=== PATIENT | female | born 1970 | race Caucasian/White ===

== ENCOUNTER 2025-01-15 18:16 | Emergency (ER) | payer OTHER, SELFPAY ==
--- NOTE | ~2025-01-15 | XR_ITS ---
EXAMINATION: XR chest 1V portable COMPARISON: No comparisons available. HISTORY: cough, URI sx FINDINGS: The lungs are clear, no effusion. No pneumothorax. Heart is normal size. Mediastinal and hilar contours are within normal limits. Bony thorax no acute abnormality. Miscellaneous: None Impression: No acute cardiopulmonary abnormality. Reviewed, dictated and finalized at location P. Impression: No acute cardiopulmonary abnormality.
--- OUTSIDE RECORDS SUMMARY | 2025-01-15 10:30 | XMS_ITS | Encounter Summary ---
Author Organization [facility] Healthcare Address [address] [place] [address] Care Team Providers Care Decker Operator Name Role Phone Charli Jadon Mccann MD Primary Care Provider + [phone] Viridiana Pink MD Unavailable [phone] Marty Feng MD Unavailable [phone] Reason for Visit * Reason Comments Shortness of Breath Started sta rted coughing up green mucus and noticed SOB when walking up a flight of steps. Has taken Covid test and was negative. Has hx of asthma and using inhaler. Does not do neb tx. Has had pneumonia and bronchitis. Taking mucinex and delsym with no relief. Encounter Details Date Type Department Care Team (Late st Contact Info) Description 01/15/2025 10:30 AM CDT Office Visit [facility] Care at [address] [address] Kristina Giles PA [address] [place] [address] [address] [place] [address] Acute cough (Primary Dx); Shortness of breath Social History Tobacco Use Types Packs/Day Years Used Date Smoking Tobacco: Never Smokeless Tobacco: Never Alcohol Use Standard Drinks/Week Comments Yes 0 (1 standard drink = 0.6 oz pur e alcohol) AUDIT-C Answer Date Recorded Q1: How often do you have a drink containing alc ohol? 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 Gender Identity Female 09/15/2023 6:21 PM CDT Sexual Orientation Not on file documented as of this encounter Last Filed Vital Signs Vital Sign Reading Time Taken Comments Blood Pressure 118/79 01/15/2025 10:24 AM CDT Pulse 75 01/15/2025 10:24 AM CDT Temperature 36.8 C (98.2 F) 01/15/2025 10:24 AM CDT Respiratory Rate 20 01/15/2025 10:24 AM CDT Oxygen Saturation 99% 01/15/2025 10:24 AM CDT Inhaled Oxygen Concentration - - Weight 108 kg (238 lb) 01/15/2025 10:24 AM CDT Height 170.2 cm (5' 7) 01/15/2025 10:24 AM CDT Body Mass Index 37.28 01/15/2025 10:24 AM CDT documented in this encounter Patient Instructions * Patient Instructions* Kristina Giles PA - 01/15/2025 10:30 AM CDT -start prednisone taper today -continue albuterol inhaler every 4-6 hours as needed -return Friday at imaging center next door for chest xray -ER for any new or worsening symptoms * Attachments The following attachments cannot be sent through Care Everywhere. * Acute Cough (AfterCare(R) Instructions(ER/ED)) (Czech) documented in this encounter Ordered Prescriptions Prescription Sig Dispense Quantity Refills Last Filled Start Date End Date predniSONE (DELTASONE) 10 mg tablet Take 5 tabs (50mg) daily for 2 days, then take 4 tabs (40mg) daily for 2 days. Continue to decrease by 1 tab (10mg) every 2 days until gone. 30 tablet 01/15/2025 documented in this encounter Progress Notes * Kristina Giles PA - 01/15/2025 10:30 AM CDT Images from the original note were not included. Subjective/Objective Patient ID: Hortencia Deras is a 55 y.o. female. Chief Complaint Shortness of Breath (Started started coughing up green mucus and noticed SOB when walking up a flight of steps. Has taken Covid test and was negative. Has hx of asthma and using inhaler. Does not do neb tx. Has had pneumonia and bronchitis. Taking mucinex and delsym with no relief. ) Pt presents w/ URI x 4 days. Started with cough which worsened 2 days ago. Cough is now productive and having wheezing as well. Starting to feel winded when walking up stairs. Tried mucinex, delsym. Called pcp who said go to if symptoms got worse. Home covid test negative. Using albuterol inhaler w/ short term relief. Had asthma as a child. No fever. Had sore throat initially which has improved. Chest sore when she coughs. 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 Review of Systems All systems reviewed and are negative or non contributory for this patient's presentation today other than as stated in the HPI . Physical Exam Constitutional: General: She is not in acute distress. Appearance: She is not ill-appearing or toxic-appearing. HENT: Head: Normocephalic and atraumatic. Right Ear: External ear normal. Left Ear: External ear normal. Nose: Nose normal. Mouth/Throat: Mouth: Mucous membranes are moist. Pharynx: Oropharynx is clear. Eyes: Conjunctiva/sclera: Conjunctivae normal. Pupils: Pupils are equal, round, and reactive to light. Cardiovascular: Rate and Rhythm: Normal rate and regular rhythm. Heart sounds: Normal heart sounds. Pulmonary: Effort: Pulmonary effort is normal. No respiratory distress. Breath sounds: Normal breath sounds. No wheezing or rhonchi. Musculoskeletal: General: Normal range of motion. Cervical back: Normal range of motion. Skin: General: Skin is warm and dry. Neurological: General: No focal deficit present. Mental Status: She is alert and oriented to person, place, and time. Psychiatric: Mood and Affect: Mood normal. Behavior: Behavior normal. Vitals: 01/15/25 1024 BP: 118/79 Pulse: 75 Resp: 20 Temp: 36.8 ??C (98.2 ??F) TempSrc: Oral SpO2: 99% Weight: 108 kg (238 lb) Height: 170.2 cm (5' 7) Assessment/Plan -URI x 4 days w/ worsening cough and sob -lungs cta, oxygen 99% on RA, NARD -discussed ER presentation due to progressive sob, pt prefers to try prednisone taper first and return Friday for CXR to r/o PNA -start prednisone taper, continue albuterol every 4-6 hours prn -we did discuss ER presentation if symptoms worsen over the weekend or if sob is no longer improving with the albuterol -all questions and concerns addressed at length Diagnoses and all orders for this visit: Acute cough (Primary) - XR Chest Pa Lateral 2 Views; Future Shortness of breath Other orders - predniSONE (DELTASONE) 10 mg tablet; Take 5 tabs (50mg) daily for 2 days, then take 4 tabs (40mg)daily for 2 days. Continue to decrease by 1 tab (10mg) every 2 days until gone. No results found for this or any previous visit (from the past 4 hours). Disposition Treatment plan including expectations, follow up, and return precautions discussed with patient/parent, verbalizes understanding. Medication dosage, use, and potential adverse reactions discussed with patient/parent. Advised to follow up with PCP if symptoms do not resolve as expected or sooner if condition worsens. Signs/symptoms warranting ER evaluation reviewed. Patient and/or guardian was given an opportunity to ask questions, questions answered. CROW Johnston 01/15/25 11:02 AM documented in this encounter Plan of Treatment Scheduled Orders Name Type Priority Associated Diagnoses Orde r Schedule XR Chest Pa Lateral 2 Views Imaging Schedule JUD, Read JUD (Appt Today, Awaiting Results) Acute cough Expected: 01/15/2025, Expires: 01/15/2026 documented as of this encounter Visit Diagnoses Diagnosis Acute cough- Primary Shortness of breath documented in this encounter Care Teams Decker Operator Relationship Specialty Start Date End Date Charli, Jadon Ramy, MD [address] [place] [address] PCP - General 07/05/16 Viridiana Pink MD [address] [place] [address] Referring Physician Gynecology 09/02/18 Marty Feng MD [address] [place] [address] Referring Physician Cardiology 09/02/18 documented as of this encounter
--- OUTSIDE RECORDS SUMMARY | 2025-01-15 10:30 | XMS_ITS | Encounter Summary ---
Author Organization [facility] Healthcare Address [address] [place] [address] Care Team Providers Care Ciaio Counter Molder Name Role Phone Charli Jadon Mccann MD Primary Care Provider + [phone] Viridiana Pink MD Unavailable [phone] Marty Feng MD Unavailable [phone] Reason for Visit * Reason Comments Shortness [...] Description 01/15/2025 10:30 AM CDT Office Visit 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 * Acute Cough (AfterCare(R) Instructions(ER/ED)) (Kiswahili) documented in this encounter Ordered Prescriptions Prescription [...] improved. Chest sore when she coughs. Offered physician liaison but patient declined. Review of Systems All [...] an opportunity to ask questions, questions answered. CRWO Johnston 01/15/25 11:02 AM documented in this encounter Plan of Treatment Scheduled Orders Name Type Priority Associated Diagnoses Orde r Schedule XR Chest Pa Lateral 2 Views Imaging Schedule JUD, Read JUD (Appt Today, Awaiting Results) Acute cough Expected: 01/15/2025, Expires: 01/15/2026 documented as of this encounter Visit Diagnoses Diagnosis Acute cough- Primary Shortness of breath documented in this encounter Care Teams Ciaio Counter Molder Relationship Specialty Start Date End Date Charli, Jadon Ramy, MD [address] [place] [address] PCP - General 07/05/16 Viridiana Pink MD [address] [place] [address] Referring Physician Gynecology 09/02/18 Marty Feng MD [address] [place] [address] Referring Physician Cardiology 09/02/18 documented as of this encounter
--- OUTSIDE RECORDS SUMMARY | 2025-01-15 18:18 | XMS_ITS | Encounter Summary ---
Author Organization [facility] Healthcare Address [address] [place] [address] Care Team Providers Care Circus Rider Name Role Phone Charli, Jadon Mccann MD Primary Care Provider + [phone] Viridiana Pink MD Unavailable [phone] Marty Feng MD Unavailable [phone] Encounter Details Date Type Department Care Team (Late st Contact Info) Description 03/14/2017 Orders Only [facility] Imaging and Radiology [address] [place] [address] Angela Bob RN Social History Tobacco Use Types Packs/Day Years Used Date Smoking Tobacco: Never Alcohol Use Standard Drinks/Week Comments Yes 0 (1 standard drink = 0.6 oz pur e alcohol) Comments Unknown Sex and Gender Information Value Date Recorded Sex Assigned at Not on file Legal Sex Female 9:46 AM RENTAL REPRESENTATIVE Gender Identity Female 09/15/2023 6:21 PM CDT Sexual Orientation Not on file documented as of this encounter Plan of Treatment Not on file documented as of this encounter Visit Diagnoses Not on filedocumented in this encounter Orders IV Count Last Ordered Date First Orde red Date SALINE LOCK IV 1 03/17/2017 documented in this encounter Additional Health Concerns Infection Onset Date Last Indicated Resolved Time COVID: Suspected 03/04/2022 03/04/2022 03/04/2022 2:10 PM RENTAL REPRESENTATIVE COVID: Suspected 01/22/2024 01/22/2024 01/22/2024 3:33 PM CDT COVID: Suspected 06/12/2024 06/12/2024 06/13/2024 12:29 AM RENTAL REPRESENTATIVE documented as of this encounter Care Teams Circus Rider Relationship Specialty Start Date End Date Jadon Augustin MD [address] [place] [address] PCP - General 07/05/16 Viridiana Pink MD [address] [place], [place] [id number] Referring Physician Gynecology 09/02/18 Marty Feng MD [address] [place], [place] [address] Referring Physician Cardiology 09/02/18 documented as of this encounter
--- OUTSIDE RECORDS SUMMARY | 2025-01-15 18:18 | XMS_ITS | Encounter Summary ---
Author Organization [facility] Healthcare Address [address] [place] [address] Care Team Providers Care Qa Architect Name Role Phone Charli, Jadon Mccann MD Primary Care Provider + [phone] Viridiana Pink MD Unavailable [phone] Marty Feng MD Unavailable [phone] Encounter Details Date Type Department Care Team (Late st Contact Info) Description 03/14/2017 Orders Only [facility] Imaging and Radiology [address] [place] [address] Jesús Lang, [address] [place] [address] Social History Tobacco Use Types Packs/Day Years Used Date Smoking Tobacco: Never Alcohol Use Standard Drinks/Week Comments Yes 0 (1 standard drink = 0.6 oz pur e alcohol) Comments Unknown Sex and Gender Information Value Date Recorded Sex Assigned at Not on file 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 Gender Identity Female 09/15/2023 6:21 PM CDT Sexual Orientation Not on file documented as of this encounter Plan of Treatment Not on file documented as of this encounter Visit Diagnoses Not on filedocumented in this encounter Additional Health Concerns Infection Onset Date Last Indicated Resolved Time COVID: Suspected 03/04/2022 03/04/2022 03/04/2022 2:10 PM PATTERN GRADER SUPERVISOR COVID: Suspected 01/22/2024 01/22/2024 01/22/2024 3:33 PM CDT COVID: Suspected 06/12/2024 06/12/2024 06/13/2024 12:29 AM PATTERN GRADER SUPERVISOR documented as of this encounter Care Teams Qa Architect Relationship Specialty Start Date End Date Jadon Augustin MD [address] [place] [address] PCP - General 07/05/16 Viridiana Pink MD [address] [place] [address] Referring Physician Gynecology 09/02/18 Marty Feng MD [address] [place] [address] Referring Physician Cardiology 09/02/18 documented as of this encounter
[2025-01-15 18:19] VITALS: BP 149/87; PULSE 85; RESP 19; TEMP 37.1; O2SAT 99
--- OUTSIDE RECORDS SUMMARY | 2025-01-15 18:19 | XMS_ITS | Encounter Summary ---
Author Organization [facility] Address [address] [place] [address] Phone Care Team Providers Care Specialty Foods Cook Name Role Phone Jadon Augustin MD Primary Care Provider +- [phone] Viridiana Pink MD Unavailable [phone] Marty Feng MD Unavailable [phone] Encounter Details Date Type Department Care Team (Late st Contact Info) Description 11/29/2016 Orders Only [facility] [address] [place] [address] Jadon Augustin MD [address] [address] Routine lab draw (Primary Dx) Social History Tobacco Use Types Packs/Day Years Used Date Smoking Tobacco: Never Alcohol Use Standard Drinks/Week Comments Yes 0 (1 standard drink = 0.6 oz pur e alcohol) Comments Unknown Sex and Gender Information Value Date Recorded Sex Assigned at Not on file Legal Sex Female 9:46 AM POCKETS AND PIECES NECKTIE OPERATOR Gender Identity Female 09/15/2023 6:21 PM CDT Sexual Orientation Not on file documented as of this encounter Plan of Treatment Not on file documented as of this encounter Procedures Procedure Name Priority Date/Time Associated Diagnosis Comments TSH Routine 04/12/2017 8:01 AM POCKETS AND PIECES NECKTIE OPERATOR Routine lab draw CBC WITH AUTO DIFFERENTIAL Routine 04/12/2017 7:58 AM POCKETS AND PIECES NECKTIE OPERATOR Routine lab draw LIPID PANEL Routine 04/12/2017 7:58 AM POCKETS AND PIECES NECKTIE OPERATOR Routine lab draw COMPREHENSIVE METABOLIC PANEL Routine 04/12/2017 7:58 AM POCKETS AND PIECES NECKTIE OPERATOR Routine lab draw documented in this encounter Results * TSH (04/12/2017 8:01 AM POCKETS AND PIECES NECKTIE OPERATOR) [facility] TSH 3.85 mIU/L [facility] Comment: Reference Range > or = 20 Years 0.40-4.50 Ranges First trimester 0.26-2.66 Second trimester 0.55-2.73 Third trimester 0.43-2.91 Blood specimen (specimen) 04/12/2017 8:01 AM POCKETS AND PIECES NECKTIE OPERATOR 04/12/2017 8:01 AM POCKETS AND PIECES NECKTIE OPERATOR Narrative [facility] - 04/13/2017 6:31 AM POCKETS AND PIECES NECKTIE OPERATOR FASTING:YES FASTING: YES Resulting Agency Comment Performing Organization Information: Site ID: [place] Name: [facility] [place] Address: [address] [place] [id number] Director: Miles Lilly D.O., MPH Jadon Augustin MD LAB BLOOD ORDERABLES Final Result [facility] [place], [place] * Lipid panel (04/12/2017 7:58 AM POCKETS AND PIECES NECKTIE OPERATOR) [facility] Cholesterol 144 <200 mg/dL [facility] [place] HDL 58 >50 mg/dL [facility] [place] Triglycerides 67 <150 mg/dL [facility] [place] LDL 72 mg/dL (calc) [facility] - [place] Comment: Reference range: <100 Desirable range <100 mg/dL for patients with CHD or diabetes and <70 mg/dL for diabetic patients with known heart disease. LDL-C is now calculated using the Osmel calculation, which is a validated novel method providing better accuracy than the Friedewald equation in the estimation of LDL-C. Gian COCHRAN et al. KIRA. 2013;310(19): 5657-0785 (http://education.Wozityou/faq/JNG922) Chol/HDL ratio 2.5 <5.0 (calc) [facility] [place] Non-HDL, (LDL+VLDL) 86 <130 mg/dL (calc) [facility] [place] Comment: For patients with diabetes plus 1 major ASCVD risk factor, treating to a non-HDL-C goal of <100 mg/dL (LDL-C of <70 mg/dL) is considered a therapeutic option. Blood specimen (specimen) 04/12/2017 7:58 AM POCKETS AND PIECES NECKTIE OPERATOR 04/12/2017 7:59 AM POCKETS AND PIECES NECKTIE OPERATOR Narrative [facility] - 04/13/2017 9:22 AM POCKETS AND PIECES NECKTIE OPERATOR FASTING:YES FASTING: YES Resulting Agency Comment Performing Organization Information: Site ID: [place] Name: [id number] [place] Address: [address] [facility] [place] [address] Director: Miles Lilly D.O., MPH Jadon Augustin MD LAB BLOOD ORDERABLES Final Result [facility] [place] * (ABNORMAL) Comprehensive metabolic panel (04/12/2017 7:58 AM POCKETS AND PIECES NECKTIE OPERATOR) Glucose 97 65 - 99 mg/dL [facility] [place] Comment: Fasting reference interval BUN 14 7 - 25 mg/dL [facility] [place] Creatinine 0.90 0.50 - 1.10 mg/dL [facility] [place] eGFR NON-AFR. [place] 76 > OR = 60 mL/min/1. 73m2 [facility] [place] EGFR 88 > OR = 60 mL/min/1. 73m2 [facility] [place] BUN/creat ratio NOT APPLICABLE 6 - 22 (calc) [facility] [place] Sodium 143 135 - 146 mmol/L [facility] [place] Potassium, pl 4.8 3.5 - 5.3 mmol/L [facility] [place] Chloride 111(H) 98 - 110 mmol/L [facility] [place] CO2 22 20 - 31 mmol/L [facility] [place] Calcium 9.1 8.6 - 10.2 mg/dL [facility] [place] Protein, sr 7.0 6.1 - 8.1 g/dL [facility] [place] Albumin 4.4 3.6 - 5.1 g/dL [facility] [place] GLOBULIN 2.6 1.9 - 3.7 g/dL (calc) [facility] [place] Alb/glob ratio 1.7 1.0 - 2.5 (calc) [facility] [place] Bilirubin, total 0.8 0.2 - 1.2 mg/dL [facility] [place] Alk phos 49 33 - 115 U/L [facility] [place] AST 18 10 - 35 U/L [facility] [place] ALT (SGPT) 16 6 - 29 U/L [facility] [place] Blood specimen (specimen) 04/12/2017 7:58 AM POCKETS AND PIECES NECKTIE OPERATOR 04/12/2017 7:59 AM POCKETS AND PIECES NECKTIE OPERATOR Narrative [facility] - 04/13/2017 9:22 AM POCKETS AND PIECES NECKTIE OPERATOR FASTING:YES FASTING: YES Resulting Agency Comment Performing Organization Information: Site ID: [place] Name: [facility] Address: [address] [place] [address] [place] [address] Director: Miles Lilly D.O., MPH us Jadon Augustin MD LAB BLOOD ORDERABLES Final Result [facility] [place] * CBC with auto differential (04/12/2017 7:58 AM POCKETS AND PIECES NECKTIE OPERATOR) WBC 5.7 3.8 - 10.8 Thousand/ uL [facility] [place] RBC, POC 4.90 3.80 - 5.10 Million/u L [facility] [place] Hgb 14.1 11.7 - 15.5 g/dL [facility] [place] Hct 41.7 35.0 - 45.0 % [facility] [place] MCV 85.1 80.0 - 100.0 fL [facility] [place] MCH 28.8 27.0 - 33.0 pg [facility] [place] MCHC 33.8 32.0 - 36.0 g/dL [facility] [place] Rdw 12.7 11.0 - 15.0 % [facility] [place] Platelets 210 140 - 400 Thousand/ uL [facility] [place] MPV 11.0 7.5 - 12.5 fL [facility] [place] Neutrophils, abs 2,867 1,500 - 7,800 cells/uL [facility] [place] Neutrophil bands, abs CANCELED 0 - 750 cells/uL [facility] [place] Comment:Result canceled by t he ancillary Metamyelocytes, abs CANCELED 0 cells/uL [facility] [place] Comment:Result canceled by t he ancillary Absolute Myelocytes CANCELED 0 cells/uL [facility] [place] Comment:Result canceled by t he ancillary Promyelocytes, abs CANCELED 0 cells/uL [facility] [place] Comment:Result canceled by t he ancillary Lymphocytes, abs 2,012 850 - 3,900 cells/uL [facility] [place] Monocyte abs 399 200 - 950 cells/uL [facility] [place] Eosinophils, abs 319 15 - 500 cells/uL [facility] [place] Basophils, abs 103 0 - 200 cells/uL [facility] [place] Blast, cell CANCELED 0 cells/uL [facility] [place] Comment:Result canceled by t he ancillary NRBC abs CANCELED 0 cells/uL [facility] [place] Comment:Result canceled by t he ancillary Neutrophils 50.3 % [facility] [place] Neutrophilic bands CANCELED % [facility] [place] Comment:Result canceled by t he ancillary Metamyelocyte pct CANCELED % [facility] [place] Comment:Result canceled by t he ancillary Myelocyte pct CANCELED % [facility] [place] Comment:Result canceled by t he ancillary Promyelocyte pct CANCELED % [facility] [place] Comment:Result canceled by t he ancillary Lymphocyte pct 35.3 % [facility] [place] Reactive lymph CANCELED 0 - 10 % [facility] [place] Comment:Result canceled by t he ancillary Monocytes 7.0 % [facility] [place] Eosinophils 5.6 % [facility] [place] Basophils 1.8 % [facility] [place] Blast pct CANCELED % [facility] [place] Comment:Result canceled by t he ancillary NRBC CANCELED 0 /100 WBC [facility] [place] Comment:Result canceled by t he ancillary Comment CANCELED [facility] [place] Comment:Result canceled by t he ancillary Blood specimen (specimen) 04/12/2017 7:58 AM POCKETS AND PIECES NECKTIE OPERATOR 04/12/2017 7:59 AM POCKETS AND PIECES NECKTIE OPERATOR Narrative [facility] - 04/13/2017 9:22 AM POCKETS AND PIECES NECKTIE OPERATOR FASTING:YES FASTING: YES Resulting Agency Comment Performing Organization Information: Site ID: [place] Name: [facility] Address: [address] [place] [address] Director: Miles Lilly D.O., MPH Jadon Augustin MD LAB BLOOD ORDERABLES Final Result [facility] [place] documented in this encounter Visit Diagnoses Diagnosis Routine lab draw- Primary documented in this encounter Additional Health Concerns Infection Onset Date Last Indicated Resolved Time COVID: Suspected 03/04/2022 03/04/2022 03/04/2022 2:10 PM POCKETS AND PIECES NECKTIE OPERATOR COVID: Suspected 01/22/2024 01/22/2024 01/22/2024 3:33 PM CDT COVID: Suspected 06/12/2024 06/12/2024 06/13/2024 12:29 AM POCKETS AND PIECES NECKTIE OPERATOR documented as of this encounter Care Teams Specialty Foods Cook Relationship Specialty Start Date End Date Jadon Augustin MD [address] [place] [address] PCP - General 07/05/16 Viridiana Pink MD [address] [place], [place] [id number] Referring Physician Gynecology 09/02/18 Marty Feng MD [address] [place], [place] [address] Referring Physician Cardiology 09/02/18 documented as of this encounter
--- OUTSIDE RECORDS SUMMARY | 2025-01-15 18:19 | XMS_ITS | Clinical Summary ---
Author Organization [facility] Healthcare Address [address] [place] [address] Care Team Providers Care Safety Belt Installer Name Role Phone CharliJadon blake Ramy RIVERO Primary Care Provider [phone]- [phone] Viridiana Pink MD Unavailable [phone] Marty Feng MD Unavailable [phone] Allergies Active Allergy Reactions Criticality Noted Date Comments Fentanyl Anaphylaxis High 05/22/2017 Sulfa (Sulfonamide Antibiotics) Sulfanilamide Medications calcium carbonate-vitamin D3 1500 mg (600 mg elemental) -200 units per tablet Take 1 tablet by mouth daily Active ergocalciferol (VITAMIN D) 50,000 unit capsule Take by mouth Takes twice a month Active progesterone (PROMETRIUM) 200 mg capsule 300 mg For 12 days every month 019 Active fluticasone propionate (FLONASE) 50 mcg/actuation nasal spray Administer 1 spray into each nostril daily Active clotrimazole-beta methasone (LOTRISONE) cream APPLY EXTERNALLY TWICE A DAY 021 Active levocetirizine (XYZAL) 5 mg tablet Take 1 tablet (5 mg total) by mouth every evening Active metroNIDAZOLE (NORITRATE) 1 % cream Apply 1 application topically daily Active albuterol HFA (PROVENTIL HFA,VENTOLIN HFA,PROAIR HFA) 90 mcg/actuation inhalerIndication s:Mild intermittent asthma with acute exacerbation USE 2 INHALATIONS EVERY 6 HOURS NEEDED FOR WHEEZING 8.5 g [address] (PROTONIX) 40 mg EC tabletIndications :Gastroesophageal reflux disease, unspecified whether esophagitis present TAKE 1 TABLET DAILY 90 tablet 3 025 Active topiramate (TOPAMAX) 50 mg tablet TAKE 1 TABLET TWICE A DAY 180 tablet 3 025 Active famotidine (PEPCID) 40 mg tabletIndications :Laryngopharyngea l reflux (LPR) Take 1 tablet (40 mg total) by mouth nightly 90 tablet 3 025 2025 Active levothyroxine (SYNTHROID) 88 mcg tablet TAKE 1 TABLET EARLY IN THE MORNING BEFORE BREAKFAST 90 tablet 3 025 Active atorvastatin (LIPITOR) 40 mg tabletIndications :Mixed hyperlipidemia TAKE 1 TABLET DAILY 90 tablet 025 Active predniSONE (DELTASONE) 10 mg tablet Take 5 tabs (50mg) daily for 2 days, then take 4 tabs (40mg) daily for 2 days. Continue to decrease by 1 tab (10mg) every 2 days until gone. 30 tablet 025 Active naproxen (NAPROSYN) 500 mg tabletIndications :Migraine Take 1 tablet at onset of headache x 1. 30 tablet 023 2024 Discontinued(P atient Reported) atorvastatin (LIPITOR) 40 mg tabletIndications :Mixed hyperlipidemia TAKE 1 TABLET DAILY 90 tablet 1 025 2024 Discontinued Active Problems Problem Noted Date Diagnosed Date Neck pain 11/15/2024 Assessment & Plan (11/15/2024 8:37 AM CDT): Take levothyroxine first thing in the morning, then take Take Pantoprazole 40 mg (Protonix), 30-60 minutes prior to any other medication, food or fluids other than water Then before bedtime start Pepcid 40 mg (famotidine) Call if no improvement in neck pain, call for referral to physical therapy Routine physical examination 06/28/2024 Assessment & Plan (06/28/2024 6:06 PM CDT): IMMUNIZATIONS WERE REVIUEWED EYE EXAM AND DENTAL UPTODATE VIKKI CHRONIC AND STABLE NO COGNTIVE DECLINE TSH WAS LOW CHANGE SNYTHORID TO 88 MCG PO QDAY FALL PREVENTION AND PRECUATIONS DISCUSSED MAMMOGRAM AND COLONSCOPY UPTODATE Upper respiratory tract infection 01/22/2024 Assessment & Plan (01/29/2024 9:04 PM CDT): Acute, symptoms for 6 days. Tested negative for COVID flu and strep in office today. Mild tonsillitis and severe pharyngeal erythema without exudates on exam. We will cover for bacterial pharyngitis with amoxicillin as directed. Push fluids, anything that we will cut the back of the throat we will also help including honey, gelatin, marshmallows. Warm Salt water gargles we will help with inflammation and to flush out any bacteria. Advised she change her toothbrush after 3 days of the amoxicillin. At advised to change pillowcase also. Acute bacterial pharyngitis 01/22/2024 Assessment & Plan (01/29/2024 9:04 PM CDT): Acute, symptoms for 6 days. Tested negative for COVID flu and strep in office today. See plan for upper respiratory tract infection below. Nasopharyngitis acute 03/04/2022 Assessment & Plan (03/04/2022 2:37 PM HOSPITAL ADMISSIONS OFFICER): URI symptoms that started yesterday. Intermittent wheezing and tight cough noted on exam. Appears fatigued. Tested negative for COVID and FLU in office today. Likely viral, Rxd Promethazine DM and albuterol as instructed. Discussed antihistamine use (zyrtec/ash) to help dry up mucous. Tylenol/Ibuprofen as needed for pain. Increase fluids (water) Cool mist humidifier at night Use sinus rinses to help flush bacteria and help with congestion. Encouraged honey, marshmallows, or chloraseptic to help coat throat. Call with any worsening or persistent symptoms. Keep annual exam as scheduled in September, sooner if needed. Dysphagia 11/06/2020 Overview (11/06/2020): Added automatically from request for surgery [id number] Laryngopharyngeal reflux (LPR) 10/02/2020 Assessment & Plan (11/15/2024 9:23 AM CDT): Take levothyroxine first thing in the morning, then take Take Pantoprazole 40 mg (Protonix), 30-60 minutes prior to any other medication, food or fluids other than water Then before bedtime start Pepcid 40 mg (famotidine) Call if no improvement in neck pain, call for referral to physical therapy Laryngopharyngeal reflux discussed and Handout provided Personal interpretation of CT neck: clear, nasopharyngeal mass consistent with [place]adt cyst Assessment & Plan (10/02/2020 12:26 PM CDT): Patient presents with reports of mid-epigastric tenderness and reflux. It is improved some with pepcid, but worse over the weekend. She does admit to NSAID use for her migraines, but stopped it when she began having abdominal discomfort. She was encouraged to remain off NSAID therapy at this time. We will begin Protonix daily. Discussed avoidance of irritants for reflux. If no improvement will need referral to GI to for EGD for further evaluation. Abdominal pain 10/02/2020 Assessment & Plan (10/02/2020 12:24 PM CDT): Patient is reporting mid-epigastric pain which is most likely secondary to reflux. She reports worse with eating and feelings of reflux of food. On exam mid- epigastric tenderness noted. We will do labs to look at LFTs, we will also check amylase and lipase to r/o any pancreatitis. We will also do CBC to look for any anemia or leukocytosis. She will be started on PPI as noted above and will follow up in 2 weeks or sooner if needed. Migraine without aura or status migrainosus 05/08 Assessment & Plan (12/19/2023 8:55 AM CDT): CHRONIC AND STABLE ON PPX WITH TOPAMAX Mixed hyperlipidemia 05/22/2017 Assessment & Plan (12/19/2023 9:02 AM CDT): GOAL LDL IS UNDER 100 ON LIPITOR ONCE A DAY Postoperative hypothyroidism 05/22/2017 Assessment & Plan (12/19/2023 9:01 AM CDT): TSH IS NL STAY O THE CURRENT DOSAGE OF LEVOTHROXINE WHICH IS 100 MCG PO QDAY Assessment & Plan (04/10/2018 1:13 PM HOSPITAL ADMISSIONS OFFICER): Patient is doing well on levothyroxine 125 mcg daily. Her TSH: 0.34 remains in the low range of normal. This is where we would like to see it. I will renew her prescription for one year. Further management of her thyroid hormone supplementation can be performed by her primary care physician. I would be happy to intervene at any time to help out. Assessment & Plan (09/10/2017 8:50 AM CDT): Patient is doing well. She is instructed to continue with levothyroxine 125 mcg daily. This should be rechecked in 1 year. Assessment & Plan (06/15/2017 1:24 PM CDT): Patient is instructed to continue with LEVOTHYROXINE 125 mg daily. I will schedule her for repeat TSH in 3 months. Possible need for adjustments to her thyroid hormone supplementation. Throat pain 01/06/2017 Acne rosacea 01/06/2017 Unspecified visual disturbance 06/06/2016 Overview (08/30/2016): Visual disturbance Discharge from nipple 03/06/2016 Increased body mass index (BMI) 07/15/2014 Hematochezia 07/15/2014 Anxiety 08/21/2013 Overview (07/12/2016): Anxiety Migraine 08/21/2013 Overview (07/12/2016): Migraine Bicuspid aortic valve 07/22/2012 Goiter 12/06/2011 Overview (07/13/2016): Thyromegaly Assessment & Plan (05/10/2017 4:05 PM HOSPITAL ADMISSIONS OFFICER): Patient has done excellent status post total thyroidectomy. I will check a TSH level. Patient will follow back up in 1 month to discuss results of the TSH level and possible need for adjustments to her thyroid hormone replacement. Assessment & Plan (01/29/2017 9:33 AM CDT): This is a very pleasant 47-year-old female with a very large right thyroid lobe with a dominant solitary nodule measuring approximately 1.9 cm. Based on review of prior diagnostic imaging the right thyroid lobe is enlarging as well as this solitary nodule. Patient would benefit from a completion right thyroidectomy with isthmusectomy. Continuous recurrent laryngeal nerve monitoring will be used. Prior to surgery a fine-needle aspiration biopsy of the solitary nodule be obtained. An updated TSH level will be obtained as well. A thorough discussion took place today with the patient and her mother pertaining to the treatment recommendations. Collaboration on the recurrent laryngeal nerve and parathyroid glands were discussed. The potential functional disability that could incur should these structures be injured. All questions were answered to what appeared to be patient's understanding and satisfaction. After the procedure was explained in full the potential risk, complications, benefits and alternatives patient would like to proceed. Patient will be scheduled in a timely fashion. Aneurysm of thoracic aorta 11/28/2011 Assessment & Plan (12/19/2023 8:55 AM CDT): CHRONIC AND STABLE PT IS SCHEDULED TO HAVE AN MRI DONE WITH CARDIOLOGY Sensorineural hearing loss (SNHL) of both ears 0 09/26/2011 Nontoxic single thyroid nodule 08/29/2011 Resolved Problems Problem Noted Date Diagnosed Date Resolved Date Thyroid cancer 09/10/2017 12/31/2024 Assessment & Plan (04/10/2018 1:14 PM HOSPITAL ADMISSIONS OFFICER): Patient is status post total thyroidectomy. Patient was noted have a micro papillary thyroid cancer that was completely excised. No further treatment is required. Patient is considered free of disease. Patient is to continue with hormone supplementation as prescribed. Patient does not require any further diagnostic surveillance testing at this time. Assessment & Plan (09/10/2017 8:51 AM CDT): Patient has been diagnosed with micro papillary thyroid cancer status post total thyroidectomy. There is no additional treatment required. Patient is considered cured. Difficulty breathing 07/22/2012 022 Mild intermittent asthma wit h acute exacerbation 03/23/2012 06/16/2023 Overview (07/12/2016): Mild asthma Assessment & Plan (10/04/2022 2:26 PM CDT): Patient presented for follow-up of asthma. Outside yesterday, which made her asthma symptoms flare. Associated symptoms include cough and chest tightness. She requested a refill of albuterol yesterday but does not feel improvement. Current allergy medications include Flonase and xyzal. PE: slightly increased resp effort during conversation, lungs clear, no wheezing. Plan: albuterol nebulization treatment in office to determine if patient feels relief with a bronchodilator. She voiced relief after treatment, felt chest was more open. Plan to continue the albuterol for the next 2-3 days, may use up to every 6 hours. Continue flonase and xyzal. Rx for singulair daily. Patient has follow-up with Dr. Augustin on 11/22/22. Assessment & Plan (03/04/2022 2:35 PM HOSPITAL ADMISSIONS OFFICER): See plan for nasopharyngitis above. Refilled albuterol. Cyst of thyroid 12/25/2011 03/04/2022 Encounters Date Type Department Care Team Description 01/15/2025 10:30 AM CDT Office Visit [facility] at [address] [id number] Kristina Giles PA Acute cough (Primary Dx); Shortness of breath 01/13/2025 Telephone [facility] [address] [place] [phone] Jadon Augustin MD Medication Request 12/31/2024 3:00 PM CDT Office Visit [facility] [address] [place] [phone] Jadon Augustin MD Migraine without aura and without status migrainosus, not intractable (Primary Dx); Postoperative hypothyroidism; Mixed hyperlipidemia; Sensorineural hearing loss (SNHL) of both ears; Colon cancer screening; Routine physical examination 11/15/2024 8:15 AM CDT Office Visit [facility] - [address] [place] [address] Sheeba Lopez DO Laryngopharyngeal reflux (LPR) (Primary Dx); Neck pain from Last 3 Months Immunizations Immunization Administration Dates Next Due Hep A, Adult 09/03/2012,02/06/2012 Influenza, Quadrivalent, Na l Culture-based MDCK, Antibiotic Free, Intramuscular 05/16/2018 Influenza, Quadrivalent, Na l Culture-based MDCK, Preservative Free, Antibiotic Free, Intramuscular 06/15/2019 Influenza, Quadrivalent, Spl it, Preservative Free, Intramuscular 04/05/2023,01/23/2021,01/17/2020 Influenza, Split 02/06/2012 Influenza, Trivalent, IM (MDV) 7,03/26/2015,01/27/2014,01/27 Influenza, Trivalent, Preser vative Free, Intramuscular 12/31/2024,12/19/2023,02/23/2016 Influenza, Unspecified 01/07/2017 MMR 12/24/2012 Moderna SARS-CoV-2 Monovalen t Vaccination (12+ YRS) 06/17/2020,05/20/2020 Tdap 09/28/2021,03/06/2010 ZOSTER Recombinant 09/15/2023,04/19/2023 Surgical History Surgery Date Site/Laterality Comments OTHER SURGICAL HISTORY BENIGN: Breast biopsy OTHER SURGICAL HISTORY GOITER(NODULAR HYPERPLASIA): L HEMITHYROIDECTOMY THYROIDECTOMY Thyroidectomy TUBAL LIGATION BREAST BIOPSY 04/07/1994 - 04/06/1995 Right benign surgical bx Medical History Medical History Date Comments Hx Other Medical 1994 BENIGN Hx Other Medical 1971 MENINGITIS; Out come: sensorineural hearing loss Hx Other Medical 2012 GOITER(NODULAR HYPERPLASIA) Migraine headache Headache, migr neil Headache, tension-type Headache, tension Disease of thyroid gland Thyroid disease Fibrocystic breast Thyroid cancer (HCC) 2016 no radiatio n/chemo Family History Medical History Relation Name Comments Seizures Brother Seizure disorde r; Coronary artery disease Maternal Grandfather Coronary artery disease, premature; Breast cancer Maternal Grandmother Cancer -breast; Breast cancer Maternal cousin second cousin Headache Mother Headaches; Ovarian cancer Neg Hx Thyroid cancer Neg Hx Relation Name Status Comments Brother Maternal Grandfather Maternal Grandmother Maternal cousin second cousin Alive Mother Social History Tobacco Use Types Packs/Day Years Used Date Smoking Tobacco: Never Smokeless Tobacco: Never Tobacco Cessation:Counseling Given: Not Answered Alcohol Use Standard Drinks/Week Comments Yes 0 [...] on file Legal Sex Female 9:46 AM HOSPITAL ADMISSIONS OFFICER Gender Identity Female 09/15/2023 6:21 PM CDT Sexual Orientation Not on file Obstetrics History Para Term AB IAB SAB Ectopic Multiple Livin g Live Births 2 2 2 Date Outcome GA Total Labor Labor/2nd/3rd Weight Sex Type Anes PTL Concetta A1 A5 Name Clin Term Term Last Filed Vital Signs Vital Sign Reading [...] Mass Index 37.28 01/15/2025 10:24 AM CDT Plan of Treatment Health Maintenance Due Date Last Done Comments Hepatitis C Screening 1970 Hepatitis B Screening 01/13/1988 Pneumococcal vaccine <65 (1 of 2 - PCV) 1989 Cervical Cancer Screening 01/07/2018 01/07/2017 Colon Cancer Screening-Colonoscopy 08/17/20242014 Covid-19 Vaccine (5 - 2024-2 6 season) 2024 04/05/2023, 03/03/2021, 06/17/2020, Additional history exists Breast Cancer Screening-Mammogram 2025 07/13/2024, 11/03/2023, 11/01/2022, Additional history exists Regular Well Visit/Exam 18-64 06/28/2025, 06/16/2023, 12/12/2022, Additional history exists Depression Screening 12/31/2025 12/31/2024, 06/28/2024, 12/19/2023, Additional history exists DTaP/Tdap/Td Vaccine (3 - Td or Tdap) 09/29/2031 09/28/2021, 03/06/2010 Zoster Vaccine Completed 09/15/2023, 04/19/2023 Influenza Vaccine Completed 12/31/2024, , 04/05/2023, Additional history exists Procedures Procedure Name Priority Date/Time Associated Diagnosis Comments TSH Routine 12/23/2024 7:13 AM CDT LIPID PANEL Routine 12/23/2024 7:13 AM CDT Mixed hyperlipidemia COMPREHENSIVE METABOLIC PANEL Routine 12/23/2024 7:13 AM CDT Mixed hyperlipidemia CBC WITH AUTO DIFFERENTIAL Routine 12/23/2024 7:13 AM CDT Mixed hyperlipidemia DIAGNOSTIC MAMMOGRAM BILATERAL W REJI Schedule Routine, Read Routine (OP Routine) 07/13/2024 11:10 AM CDT Other abnormal and inconclusive findings on diagnostic imaging of breast COLONOSCOPY REPORT 08/17/2014 from Last 3 Months or Most Recently Relevant to Health Maintenance Results * CBC with auto differential (12/23/2024 7:13 AM CDT) WBC 4.8 3.8 - 10.8 Thousand/u L [facility] RBC, POC 4.92 3.80 - 5.10 Million/uL [facility] Hgb 14.4 11.7 - 15.5 g/dL [facility] Hct 44.1 35.0 - 45.0 % [facility] MCV 89.6 80.0 - 100.0 fL [facility] MCH 29.3 27.0 - 33.0 pg [facility] MCHC 32.7 32.0 - 36.0 g/dL [facility] Comment: For adults, a slight decrease in the calculated MCHC value (in the range of 30 to 32 g/dL) is most likely not clinically significant; however, it should be interpreted with caution in correlation with other red cell parameters and the patient's clinical condition. Rdw 12.9 11.0 - 15.0 % [facility] Platelets 192 140 - 400 Thousand/u L [facility] MPV 11.5 7.5 - 12.5 fL [facility] Neutrophils, abs 2,232 1,500 - 7,800 cells/uL [facility] Lymphocytes, abs 1,790 850 - 3,900 cells/uL [facility] Monocyte abs 317 200 - 950 cells/uL [facility] Eosinophils, abs 360 15 - 500 cells/uL [facility] Basophils, abs 101 0 - 200 cells/uL [facility] Neutrophils 46.5 % [facility] Lymphocyte pct 37.3 % [facility] Monocytes 6.6 % [facility] Eosinophils 7.5 % [facility] Basophils 2.1 % [facility] Blood 12/23/2024 7:13 AM CDT 12/23/2024 7:14 AM CDT Narrative [facility] - 12/24/2024 3:32 AM CDT SPLIT 08/16/2024 FROM [id number] FASTING:YES FASTING: YES us Jadon Augustin MD LAB BLOOD ORDERABLES Final Result [facility] [address] [address] [phone] * TSH (12/23/2024 7:13 AM CDT) TSH 3.47 mIU/L [facility] Comment: Reference Range > or = 20 Years 0.40-4.50 Ranges First trimester 0.26-2.66 Second trimester 0.55-2.73 Third trimester 0.43-2.91 12/23/2024 7:13 AM CDT 12/23/2024 7:14 AM CDT Narrative [facility] - 12/24/2024 3:32 AM CDT SPLIT 08/16/2024 FROM [id number] FASTING:YES FASTING: YES us Jadon Augustin MD LAB BLOOD ORDERABLES Final Result [facility] [address] [facility] [place] [address] * (ABNORMAL) Lipid panel (12/23/2024 7:13 AM CDT) Pathologist [facility] Cholesterol 150 <200 mg/dL [facility] HDL 49(L) > OR = 50 mg/dL [facility] Triglycerides 82 <150 mg/dL [facility] LDL 84 mg/dL (calc) [facility] Comment: Reference range: <100 Desirable range <100 mg/dL for primary prevention; <70 mg/dL for patients with CHD or diabetic patients with > or = 2 CHD risk factors. LDL-C is now calculated using the Gian-Jeffry calculation, which is a validated novel method providing better accuracy than the Friedewald equation in the estimation of LDL-C. Gian COCHRAN et al. KIRA. 2013;310(19): 3424-9191 (http://education.[employer].EastMeetEast/faq/PXF725) Chol/HDL ratio 3.1 <5.0 (calc) [facility] Non-HDL, (LDL+VLDL) 101 <130 mg/dL (calc) [facility] Comment: For patients with diabetes plus 1 major ASCVD risk factor, treating to a non-HDL-C goal of <100 mg/dL (LDL-C of <70 mg/dL) is considered a therapeutic option. Blood 12/23/2024 7:13 AM CDT 12/23/2024 7:14 AM CDT Narrative [facility] - 12/24/2024 3:32 AM CDT SPLIT 08/16/2024 FROM [id number] FASTING:YES FASTING: YES us Jadon Augustin MD LAB BLOOD ORDERABLES Final Result [facility] [address] [phone] * (ABNORMAL) Comprehensive metabolic panel (12/23/2024 7:13 AM CDT) Pathologist [facility] Glucose 100(H) 65 - 99 mg/dL [facility] Comment: Fasting reference interval For someone without known diabetes, a glucose value between 100 and 125 mg/dL is consistent with prediabetes and should be confirmed with a follow-up test. BUN 16 7 - 25 mg/dL [facility] Creatinine 0.93 0.50 - 1.03 mg/dL [facility] eGFR 73 > OR = 60 mL/min/1.7 3m2 [facility] BUN/creat ratio SEE NOTE: 6 - 22 (calc) [facility] Comment: Not Reported: BUN and Creatinine are within reference range. Sodium 141 135 - 146 mmol/L [facility] Potassium, pl 4.0 3.5 - 5.3 mmol/L [facility] Chloride 107 98 - 110 mmol/L [facility] CO2 26 20 - 32 mmol/L [facility] Calcium 9.1 8.6 - 10.4 mg/dL [facility] Protein, sr 6.8 6.1 - 8.1 g/dL [facility] Albumin 4.4 3.6 - 5.1 g/dL [facility] GLOBULIN 2.4 1.9 - 3.7 g/dL (calc) [facility] Alb/glob ratio 1.8 1.0 - 2.5 (calc) [facility] Bilirubin, total 0.4 0.2 - 1.2 mg/dL [facility] Alk phos 74 37 - 153 U/L [facility] AST 23 10 - 35 U/L [facility] ALT (SGPT) 19 6 - 29 U/L [facility] Blood 12/23/2024 7:13 AM CDT 12/23/2024 7:14 AM CDT Narrative [facility] - 12/24/2024 3:32 AM CDT SPLIT 08/16/2024 FROM [id number] FASTING:YES FASTING: YES us Jadon Augustin MD LAB BLOOD ORDERABLES Final Result [facility] [address] [phone] * Diagnostic Mammogram Bilateral W Reji (07/13/2024 11:10 AM CDT) Anatomical Region Laterality Modality Breast Bilateral Mammography 07/13/2024 12:5 4 PM CDT Impressions 07/13/2024 12:54 PM CDT No imaging findings to suggest malignancy are seen. The patient may return to screening mammography as per ACR guidelines. OVERALL FINAL ASSESSMENT: [id number] Electronically signed by: Cecille Crisostomo M.D. Narrative 07/13/2024 12:54 PM CDT EXAMINATION: BILATERAL DIGITAL DIAGNOSTIC MAMMOGRAM AND DIGITAL BREAST TOMOSYNTHESIS; RIGHT BREAST SONOGRAM HISTORY: Palpable abnormality on the right COMPARISON: 2023, 2022, and 2021 TECHNIQUE: Full field digital mammographic views of the bilateral breast(s) were performed, including computer aided detection (CAD) and digital breast tomosynthesis (DBT). Directed ultrasound evaluation of the right breast(s) was performed. BREAST PARENCHYMAL COMPOSITION: The breasts are heterogeneously dense, which may obscure small masses. MAMMOGRAM FINDINGS: There are no suspicious masses seen mammographically. No suspicious calcifications are seen. There is no unexplained architectural distortion. There is no skin thickening seen. There are no mammographically abnormal lymph nodes seen in the axillae or elsewhere. ULTRASOUND FINDINGS: Sonography through the palpable area at 11:00 on the right demonstrates an elongate, ovoid cyst containing septations and a few low level echoes. The maximum dimension is 1.3 cm. This is considered benign. Viridiana Pink MD IMG MAMMO PROCEDURES Fin al Result * COLONOSCOPY REPORT (08/17/2014) Anatomical Region Laterality Modality Other Narrative 08/17/2014 Ordered by an unspecified provider. Historical Provider GI PROCEDURE ORDERABLES F inal Result from Last 3 Months or Most Recently Relevant to Health Maintenance Insurance [facility] HMO/PPO Address: [facility] [address] [place] [address] [facility] CHOICE PLUS [facility] HMO/PPO Address: [address] [address] [place] [address] [employer] [facility] HMO/PPO Address: [address] [place] [address] [employer] [facility] HMO/PPO Address: [address] [place] [address] Advance Directives For more information, please contact: [phone] * Full Code (Latest Code Status on File) Date Activated Date Inactivated Comments 04/24/2017 11:10 AM 04/25/2017 12:05 PM Care Teams Safety Belt Installer Relationship Specialty Start Date End Date Jadon Augustin MD [address] [place] [address] PCP - General 07/05/16 Viridiana Pink MD [address] [place] [address] Referring Physician Gynecology 09/02/18 Marty Feng MD [address] [place] [address] Referring Physician Cardiology 09/02/18
[2025-01-15 18:30] VITALS: BP 107/72; PULSE 71; RESP 16; O2SAT 97
--- OUTSIDE RECORDS SUMMARY | 2025-01-15 19:03 | XMS_ITS | Encounter Summary ---
Author Organization [facility] Address [address] [place] [address] Phone Care Team Providers Care Evs Attendant Name Role Phone Jadon Augustin MD Primary Care Provider [phone] Viridiana Pink MD Unavailable [phone] Marty Feng MD Unavailable [phone] Encounter Details Date Type Department Care Team (Late st Contact Info) Description 06/04/2017 Orders Only [facility] ProviderVianey MD [address] [place] [address] Social History Tobacco Use Types Packs/Day Years Used Date Smoking Tobacco: Never Smokeless Tobacco: Never Alcohol Use Standard Drinks/Week Comments Yes 0 (1 standard drink = 0.6 oz pur e alcohol) Comments Unknown Sex and Gender Information Value Date Recorded Sex Assigned at Not on file Legal Sex Female 9:46 AM RN PAIN MANAGEMENT Gender Identity Female 09/15/2023 6:21 PM CDT Sexual Orientation Not on file documented as of this encounter Plan of Treatment Not on file documented as of this encounter Procedures Procedure Name Priority Date/Time Associated Diagnosis Comments DISCHARGE LABORATORY CUMULATIVE REPORT 06/04/2017 12:00 AM RN PAIN MANAGEMENT documented in this encounter Results * DISCHARGE LABORATORY CUMULATIVE REPORT (06/04/2017 12:00 AM RN PAIN MANAGEMENT) Narrative 06/04/2017 12:00 AM RN PAIN MANAGEMENT Ordered by an unspecified provider. us Historical Provider LAB BLOOD ORDERABLES Iman l Result documented in this encounter Visit Diagnoses Not on filedocumented in this encounter Additional Health Concerns Infection Onset Date Last Indicated Resolved Time COVID: Suspected 03/04/2022 03/04/2022 03/04/2022 2:10 PM RN PAIN MANAGEMENT COVID: Suspected 01/22/2024 01/22/2024 01/22/2024 3:33 PM CDT COVID: Suspected 06/12/2024 06/12/2024 06/13/2024 12:29 AM RN PAIN MANAGEMENT documented as of this encounter Care Teams Evs Attendant Relationship Specialty Start Date End Date Jadon Augustin MD [address] [place] [address] PCP - General 07/05/16 Viridiana Pink MD [address] [place] [address] Referring Physician Gynecology 09/02/18 Marty Feng MD [address] [place], [place] [address] Referring Physician Cardiology 09/02/18 documented as of this encounter
--- OUTSIDE RECORDS SUMMARY | 2025-01-15 19:03 | XMS_ITS | Encounter Summary ---
Author Organization [facility] Healthcare Address [address] [place] [address] Care Team Providers Care Ceramic Restorer Name Role Phone Charli, Jadon Mccann MD Primary Care Provider + [phone] Viridiana Pink MD Unavailable [phone] Marty Feng MD Unavailable [phone] Encounter Details Date Type Department Care Team (Late st Contact Info) Description 03/14/2017 Orders Only [facility] Imaging and Radiology [address] [place] [address] Angela Bob RN Social History Tobacco Use Types Packs/Day Years Used Date Smoking Tobacco: Never Alcohol Use Standard Drinks/Week Comments Yes 0 (1 standard drink = 0.6 oz pur e alcohol) Comments Unknown Sex and Gender Information Value Date Recorded Sex Assigned at Not on file Legal Sex Female 9:46 AM ASSOCIATE DEAN OF WOMEN Gender Identity Female 09/15/2023 6:21 PM CDT [...] COVID: Suspected 03/04/2022 03/04/2022 03/04/2022 2:10 PM ASSOCIATE DEAN OF WOMEN COVID: Suspected 01/22/2024 01/22/2024 01/22/2024 3:33 PM CDT COVID: Suspected 06/12/2024 06/12/2024 06/13/2024 12:29 AM ASSOCIATE DEAN OF WOMEN documented as of this encounter Care Teams Ceramic Restorer Relationship Specialty Start Date End Date Jadon Augustin MD [address] [place] [address] PCP - General 07/05/16 Viridiana Pink MD [address] [place], [place] [id number] Referring Physician Gynecology 09/02/18 Marty Feng MD [address] [place], [place] [address] Referring Physician Cardiology 09/02/18 documented as of this encounter
--- OUTSIDE RECORDS SUMMARY | 2025-01-15 19:03 | XMS_ITS | Encounter Summary ---
Author Organization [facility] Address [address] [place] [address] Care Team Providers Care Truss Maker Name Role Phone Charli, Jadon Mccann MD Primary Care Provider + [phone] Viridiana Pink MD Unavailable [phone] Marty Feng MD Unavailable [phone] Encounter Details Date Type Department Care Team (Late st Contact Info) Description 03/14/2017 Orders Only [facility] Imaging and Radiology [address] [place] [address] Jesús Lang, [address] [place] [address] Social History Tobacco Use Types Packs/Day Years Used Date Smoking Tobacco: Never Alcohol Use Standard Drinks/Week Comments Yes 0 (1 standard drink = 0.6 oz pur e alcohol) Comments Unknown Sex and Gender Information Value Date Recorded Sex Assigned at Not on file Legal Sex Female 9:46 AM PATIENT CARE DIRECTOR Gender Identity Female 09/15/2023 6:21 PM CDT Sexual Orientation Not on file documented as of this encounter Plan of Treatment Not on file documented as of this encounter Visit Diagnoses Not on filedocumented in this encounter Additional Health Concerns Infection Onset Date Last Indicated Resolved Time COVID: Suspected 03/04/2022 03/04/2022 03/04/2022 2:10 PM PATIENT CARE DIRECTOR COVID: Suspected 01/22/2024 01/22/2024 01/22/2024 3:33 PM CDT COVID: Suspected 06/12/2024 06/12/2024 06/13/2024 12:29 AM PATIENT CARE DIRECTOR documented as of this encounter Care Teams Truss Maker Relationship Specialty Start Date End Date Jadon Augustin MD [address] [place] [address] PCP - General 07/05/16 Viridiana Pink MD [address] [place] [address] Referring Physician Gynecology 09/02/18 Marty Feng MD [address] [place] [address] Referring Physician Cardiology 09/02/18 documented as of this encounter
--- OUTSIDE RECORDS SUMMARY | 2025-01-15 19:03 | XMS_ITS | Encounter Summary ---
Author Organization [facility] Address [address] [place] [address] Phone Care Team Providers Care Sales Promotion Manager Name Role Phone Jadon Augustin MD Primary Care Provider +- [phone] Viridiana Pink MD Unavailable [phone] Marty Feng MD Unavailable [phone] Encounter Details Date Type Department Care Team (Late st Contact Info) Description 11/29/2016 Orders Only [facility] [address] [place] [address] Jadon Augustin MD [address] [address] Routine lab draw (Primary Dx) Social History Tobacco Use Types Packs/Day Years Used Date Smoking Tobacco: Never Alcohol Use Standard Drinks/Week Comments Yes 0 (1 standard drink = 0.6 oz pur e alcohol) Comments Unknown Sex and Gender Information Value Date Recorded Sex Assigned at Not on file Legal Sex Female 9:46 AM CHILDCARE PROVIDER Gender Identity Female 09/15/2023 6:21 PM CDT Sexual Orientation Not on file documented as of this encounter Plan of Treatment Not on file documented as of this encounter Procedures Procedure Name Priority Date/Time Associated Diagnosis Comments TSH Routine 04/12/2017 8:01 AM CHILDCARE PROVIDER Routine lab draw CBC WITH AUTO DIFFERENTIAL Routine 04/12/2017 7:58 AM CHILDCARE PROVIDER Routine lab draw LIPID PANEL Routine 04/12/2017 7:58 AM CHILDCARE PROVIDER Routine lab draw COMPREHENSIVE METABOLIC PANEL Routine 04/12/2017 7:58 AM CHILDCARE PROVIDER Routine lab draw documented in this encounter Results * TSH (04/12/2017 8:01 AM CHILDCARE PROVIDER) [facility] TSH 3.85 mIU/L [facility] Comment: Reference Range > or = 20 Years 0.40-4.50 Ranges First trimester 0.26-2.66 Second trimester 0.55-2.73 Third trimester 0.43-2.91 Blood specimen (specimen) 04/12/2017 8:01 AM CHILDCARE PROVIDER 04/12/2017 8:01 AM CHILDCARE PROVIDER Narrative [facility] - 04/13/2017 6:31 AM CHILDCARE PROVIDER FASTING:YES FASTING: YES Resulting Agency Comment Performing Organization Information: Site ID: [place] Name: [facility] Address: [address] [place] [address] Director: Miles Lilly D.O., MPH Jadon Augustin MD LAB BLOOD ORDERABLES Final Result [facility] [employer] [place], [place] * Lipid panel (04/12/2017 7:58 AM CHILDCARE PROVIDER) [facility] Cholesterol 144 <200 mg/dL [facility] [place] HDL 58 >50 mg/dL [facility] [place] Triglycerides 67 <150 mg/dL [facility] [place] LDL 72 mg/dL (calc) [facility] - [place] Comment: Reference range: <100 Desirable range <100 mg/dL for patients with CHD or diabetes and <70 mg/dL for diabetic patients with known heart disease. LDL-C is now calculated using the Osmel calculation, which is a validated novel method providing better accuracy than the Friedewald equation in the estimation of LDL-C. Gian COCHRAN et al. KIRA. 2013;310(19): 4988-9142 (http://education.[employer]/faq/TCN996) Chol/HDL ratio 2.5 <5.0 (calc) [facility] [place] Non-HDL, (LDL+VLDL) 86 <130 mg/dL (calc) [facility] [place] Comment: For patients with diabetes plus 1 major ASCVD risk factor, treating to a non-HDL-C goal of <100 mg/dL (LDL-C of <70 mg/dL) is considered a therapeutic option. Blood specimen (specimen) 04/12/2017 7:58 AM CHILDCARE PROVIDER 04/12/2017 7:59 AM CHILDCARE PROVIDER Narrative [facility] - 04/13/2017 9:22 AM CHILDCARE PROVIDER FASTING:YES FASTING: YES Resulting Agency Comment Performing Organization Information: Site ID: [place] Name: [facility] Address: [address] [facility] [place] [address] Director: Miles Lilly D.O., MPH Jadon Augustin MD LAB BLOOD ORDERABLES Final Result [facility] [place] * (ABNORMAL) Comprehensive metabolic panel (04/12/2017 7:58 AM CHILDCARE PROVIDER) Glucose 97 65 - 99 mg/dL [facility] [place] Comment: Fasting reference interval BUN 14 7 - 25 mg/dL [facility] [place] Creatinine 0.90 0.50 - 1.10 mg/dL [facility] [place] eGFR NON-AFR. ESTONIAN 76 > OR = 60 mL/min/1. 73m2 [...] [place] Blood specimen (specimen) 04/12/2017 7:58 AM CHILDCARE PROVIDER 04/12/2017 7:59 AM CHILDCARE PROVIDER Narrative [facility] - 04/13/2017 9:22 AM CHILDCARE PROVIDER FASTING:YES FASTING: YES Resulting Agency Comment Performing Organization Information: Site ID: [place] Name: [facility] Address: [address] [place] [address] [place] [address] Director: Miles Lilly D.O., MPH us Jadon Augustin MD LAB BLOOD ORDERABLES Final Result [facility] [place] * CBC with auto differential (04/12/2017 7:58 AM CHILDCARE PROVIDER) WBC 5.7 3.8 - 10.8 Thousand/ uL [...] ancillary Blood specimen (specimen) 04/12/2017 7:58 AM CHILDCARE PROVIDER 04/12/2017 7:59 AM CHILDCARE PROVIDER Narrative [facility] - 04/13/2017 9:22 AM CHILDCARE PROVIDER FASTING:YES FASTING: YES Resulting Agency Comment Performing Organization Information: Site ID: [place] Name: [facility] Address: [address] [place] [address] Director: Miles Lilly D.O., MPH Jadon Augustin MD LAB BLOOD ORDERABLES Final Result [facility] [place] documented in this encounter Visit Diagnoses Diagnosis Routine lab draw- Primary documented in this encounter Additional Health Concerns Infection Onset Date Last Indicated Resolved Time COVID: Suspected 03/04/2022 03/04/2022 03/04/2022 2:10 PM CHILDCARE PROVIDER COVID: Suspected 01/22/2024 01/22/2024 01/22/2024 3:33 PM CDT COVID: Suspected 06/12/2024 06/12/2024 06/13/2024 12:29 AM CHILDCARE PROVIDER documented as of this encounter Care Teams Sales Promotion Manager Relationship Specialty Start Date End Date Jadon Augustin MD [address] [place] [address] PCP - General 07/05/16 Viridiana Pink MD [address] [place], [place] [address] Referring Physician Gynecology 09/02/18 Marty Feng MD [address] [place], [place] [address] Referring Physician Cardiology 09/02/18 documented as of this encounter
--- OUTSIDE RECORDS SUMMARY | 2025-01-15 19:03 | XMS_ITS | Clinical Summary ---
Author Organization [facility] Healthcare Address [address] [place] [address] Care Team Providers Care Head Of Biology Name Role Phone CharliJadon blake Ramy RIVERO Primary Care Provider +- [phone] Viridiana Pink MD Unavailable [phone] Marty Feng MD Unavailable [phone] Allergies Active Allergy Reactions Criticality Noted Date [...] 03/04/2022 Assessment & Plan (03/04/2022 2:37 PM GREEN END WORKER): URI symptoms that started yesterday. Intermittent wheezing [...] (11/06/2020): Added automatically from request for surgery [id number] Laryngopharyngeal reflux (LPR) 10/02/2020 Assessment & Plan [...] QDAY Assessment & Plan (04/10/2018 1:13 PM GREEN END WORKER): Patient is doing well on levothyroxine 125 [...] Thyromegaly Assessment & Plan (05/10/2017 4:05 PM GREEN END WORKER): Patient has done excellent status post total [...] 12/31/2024 Assessment & Plan (04/10/2018 1:14 PM GREEN END WORKER): Patient is status post total thyroidectomy. Patient [...] 11/22/22. Assessment & Plan (03/04/2022 2:35 PM GREEN END WORKER): See plan for nasopharyngitis above. Refilled albuterol. Cyst of thyroid 12/25/2011 03/04/2022 Encounters Date Type Department Care Team Description 01/15/2025 10:30 AM CDT Office Visit [facility] [address] [address] Kristina Giles PA Acute cough (Primary Dx); Shortness of breath 01/13/2025 Telephone [facility] [address] [place] [address] Jadon Augustin MD Medication Request 12/31/2024 3:00 PM CDT Office Visit [facility] [address] [place] [address] Jadon Augustin MD Migraine without aura and without status migrainosus, not intractable (Primary Dx); Postoperative hypothyroidism; Mixed hyperlipidemia; Sensorineural hearing loss (SNHL) of both ears; Colon cancer screening; Routine physical examination 11/15/2024 8:15 AM CDT Office Visit [facility] - [address] [place] [address] Sheeba Lopez DO Laryngopharyngeal reflux [...] on file Legal Sex Female 9:46 AM GREEN END WORKER Gender Identity Female 09/15/2023 6:21 PM CDT [...] 12/24/2024 3:32 AM CDT SPLIT 08/16/2024 FROM [id number] FASTING:YES FASTING: YES us Jadon Augustin MD LAB BLOOD ORDERABLES Final Result [facility] [employer] [address] [place] [address] * TSH (12/23/2024 7:13 AM CDT) TSH 3.47 mIU/L [facility] Comment: Reference Range > or = 20 Years 0.40-4.50 Ranges First trimester 0.26-2.66 Second trimester 0.55-2.73 Third trimester 0.43-2.91 12/23/2024 7:13 AM CDT 12/23/2024 7:14 AM CDT Narrative [facility] - 12/24/2024 3:32 AM CDT SPLIT 08/16/2024 FROM [id number] FASTING:YES FASTING: YES us Jadon Augustin MD LAB BLOOD ORDERABLES Final Result [facility] [address] [facility] [place] [address] * (ABNORMAL) Lipid panel (12/23/2024 7:13 AM CDT) Pathologist [facility] Cholesterol 150 <200 mg/dL [facility] [...] LDL-C. Gian COCHRAN et al. KIRA. 2013;310(19): 0936-8886 (http://education.[employer]/faq/BPI087) Chol/HDL ratio 3.1 <5.0 (calc) [facility] [...] 12/24/2024 3:32 AM CDT SPLIT 08/16/2024 FROM [id number] FASTING:YES FASTING: YES us Jadon Augustin MD LAB BLOOD ORDERABLES Final Result [facility] [address] [place] [address] * (ABNORMAL) Comprehensive metabolic panel (12/23/2024 7:13 AM CDT) Pathologist [facility] Glucose 100(H) 65 - 99 mg/dL [facility] [...] 12/24/2024 3:32 AM CDT SPLIT 08/16/2024 FROM [id number] FASTING:YES FASTING: YES us Jadon Augustin MD LAB BLOOD ORDERABLES Final Result [facility] [address] [place] [address] * Diagnostic Mammogram Bilateral W Reji (07/13/2024 11:10 AM CDT) Anatomical Region Laterality Modality Breast Bilateral Mammography 07/13/2024 12:5 4 PM CDT Impressions 07/13/2024 12:54 PM CDT No imaging findings to suggest malignancy are seen. The patient may return to screening mammography as per ACR guidelines. OVERALL FINAL ASSESSMENT: [id number] Electronically signed by: Cecille Crisostomo M.D. Narrative [...] Most Recently Relevant to Health Maintenance Insurance [facility] CHOICE PLUS CHOICE PLUS CHOICE PLUS Advance Directives For more information, please contact: [phone] * Full Code (Latest Code Status on File) Date Activated Date Inactivated Comments 04/24/2017 11:10 AM 04/25/2017 12:05 PM Care Teams Head Of Biology Relationship Specialty Start Date End Date Jadon Augustin MD [address] [place] [address] PCP - General 07/05/16 Viridiana Pink MD [address] [place] [address] Referring Physician Gynecology 09/02/18 Marty Feng MD [address] [place] [address] Referring Physician Cardiology 09/02/18
--- NOTE | 2025-01-15 19:14 | ED.URI ---
HPI - URI/Sore Throat General Chief Complaint: Upper Respiratory Infection Stated Complaint: uri Time Seen by Provider: 01/15/25 18:29 History of Present Illness HPI Narrative: Patient presents here with URI symptoms, has been having a runny nose, then started having a cough, she talk to her doctor and went to an urgent care but the Urgent Care was unable to get a chest x-ray. She was starting to have some slight shortness of breath when going up the stairs so came in to get checked out. No DVT symptoms or history blood clots. Related Data Allergies Allergy/AdvReac Type Severity Reaction Status Date / Time Sulfa (Sulfonamide Allergy Mild HIVES Verified 01/15/25 18:50 Antibiotics) fentanyl Allergy Unknown REPORTS Verified 01/15/25 18:50 STOPPED BREATHING Review of Systems Review of Systems: All systems reviewed & are unremarkable except as noted in HPI and [facility] Social History Social History (Updated 11/18/19 @ 15:24 by Angelika Mitchell MA) Smoking status: Never smoker Alcohol intake: current Drinks per week: 1 Alcohol use details: occasionally Substance use: never Exam Narrative: EXAMINATION OF ORGAN SYSTEMS/BODY AREAS: Constitutional: Vital signs per nursing GENERAL:[No acute distress, non-toxic appearing.] HEAD: Normal with no signs of head trauma. EYES: EOMI, conjunctiva normal ENT: Deaf LUNGS: Nonlabored breathing. Clear to auscultation bilaterally. Occasional coughing here, without any sputum production while I was in the room HEART: [Regular rate and rhythm] ABD: [Soft], [nontender to palpation] EXT: Normal range of motion SKIN: [No rashes or lesions.] NEURO: [Alert and oriented x 3. No gross focal sensory or strength deficits.] PSYCH: Normal affect Course Vital Signs Vital signs: Vital Signs Temperature 98.7 F 01/15/25 18:19 Pulse Rate 85 01/15/25 18:19 Respiratory Rate 19 01/15/25 18:19 Blood Pressure 149/87 H 01/15/25 18:19 Pulse Oximetry 99 01/15/25 18:19 Oxygen Delivery Room Air 01/15/25 18:19 Temperature 98.7 F 01/15/25 18:19 Pulse Rate 71 01/15/25 18:30 Respiratory Rate 16 01/15/25 18:30 Blood Pressure 107/72 01/15/25 18:30 Pulse Oximetry 97 01/15/25 18:30 Oxygen Delivery Room Air 01/15/25 18:30 MDM - URI/Sore Throat MDM Narrative Medical decision making narrative: ED COURSE AND MEDICAL DECISION MAKING: This 55 year old patient presents with symptoms most suggestive of viral upper respiratory tract infection; she has been having runny nose, cough, body aches. Lungs are clear bilaterally without any respiratory distress or accessory muscle use. She has no DVT symptoms and no chest pain and normal vital signs so have very low concern for PE or ACS. She is already on prednisone and has multiple medications at home including Mucinex and Flonase that she is using. Chest x-ray obtained here without any signs of consolidations. I discussed the negative findings with the patient, she is discharged home in stable condition with expectant management. Return precautions were provided. Normal vitals here Discharge Plan Discharge Clinical Impression: Upper respiratory infection Patient Disposition: Home Condition: Stable Instructions: Cold Symptoms (ED) Additional Instructions: Your x-ray thankfully does not show any pneumonia. Continue taking the Flonase, cough medicine, and follow up with your doctor. If your symptoms get worse you can come back to the hospital. Patient Language: Djiboutian Follow-up/Referrals: Charli,MD Jadon [Primary Care Provider]
[2025-01-15 19:35] VITALS: BP 124/72; PULSE 74; RESP 19; O2SAT 98
== END 2025-01-15 19:37 | disposition home or self-care (01) ==
LOC: ANHED 19:01
PROVIDERS: Emergency Provider Emergency Medicine; PCP Internal Medicine Infectious Disease
DX: J06.9 Acute upper respiratory infection, unspecified (principal)
CPT/HCPCS: 71045; 99283

== ENCOUNTER 2025-02-24 15:30 | Outpatient (CLI) | payer OTHER, SELFPAY ==
--- NOTE | ~2025-02-24 | DEXA_ITS ---
Bone Density Report Name: ALEN CARVALHO Age: 55 Sex: Female Ethnicity: White Date of : 1970 Indication: postmenopausal; screening for osteoporosis; cancer; asthma or emphysema; Referring Provider: LESA MALAGON Study: Bone densitometry was performed. Exam Date: February 24, 2025 Accession number: [id number] Bone Density: Region BMD T-score Z-score Classification AP Spine(L1-L4) 0.977 -0.6 0.4 Normal Femoral Neck (Left) 0.863 0.1 1.2 Normal Total Hip (Left) 0.971 0.2 0.9 Normal Femoral Neck (Right) 0.858 0.1 1.1 Normal Total Hip (Right) 0.908 -0.3 0.4 Normal Total Hip Mean 0.939 -0.1 0.7 Normal World Health Organization criteria for BMD impression classify patients as: Normal (T-score at or above -1.0), Osteopenia (T-score between -1.0 and -2.5), or Osteoporosis (T-score at or below -2.5). 10-year Fracture Risk: FRAX not reported because: All T-scores for Spine Total, Hip Total, Femoral Neck at or above -1.0 Clinical Information Provided by Patient: Has used the following medications: HRT (i.e. estrogen/hormone therapy), Vitamin D, Calcium Has the following medical conditions: Asthma or Emphysema, Cancer, thyroid cancer Patient maximum height was 68 Menopause Age: 54 No regular weight bearing exercise Does not regularly consume dairy products Drinks caffeinated beverages Onset of menses at age 13 Number of children 2 Impression: The patient has normal bone mass. Discussion: BONE DENSITY IS ABOVE THE MINIMUM DESIRABLE LEVEL AT ALL SKELETAL SITES TESTED. This patient?s bone mineral density is above the minimum desirable level (T-score -1.0 or better) at all sites measured. The patient should follow a healthful lifestyle (good nutrition with adequate calcium and vitamin D, and appropriate weight-bearing exercise). Follow-Up: Consider repeating this study in 5 years or sooner if there is some new clinical indication. Reported by: SHARATH on 02/24/2025 3:54:00 PM. Reviewed, dictated and finalized at location A.
== END 2025-02-24 15:31 | disposition home or self-care (01) ==
LOC: MICIMG 15:31
PROVIDERS: PCP Internal Medicine Infectious Disease; Visit Provider Obstetrics & Gynecology Gynecology
DX: Z78.0 Asymptomatic menopausal state (principal)
CPT/HCPCS: 77080